=== PATIENT | male | born 1980 | race Caucasian/White ===

== ENCOUNTER 2018-09-16 06:51 | Emergency (ER) | payer OTHER ==
[~2018-09-16] VITALS: Ht 170.2 cm; Wt 54.9 kg
[2018-09-16 07:07] LABS: ABSOLUTE NEUTROPHILS 4.5 thou/uL (1.4-8.2); BASOPHILS 0.4 % (0.0-2.0); HEMATOCRIT 42.7 % (42.0-52.0); HEMOGLOBIN 14.5 gm/dL (14.0-18.0); LYMPHOCYTES 25.7 % (24.0-44.0); MCH 30.3 pg (26.0-34.0); MCHC 33.9 g/dL (28.0-37.0); MCV 89.4 fL (80.0-100.0); MONOCYTES 10.9 % (1.0-8.0); PLATELET COUNT 140 thou/uL (150-400); RBC 4.78 mil/uL (4.50-6.00); RDW 13.4 % (10.5-14.5); WBC 7.4 thou/uL (4.0-11.0)
[2018-09-16 07:14] LABS: ANION GAP 8 mmol/L (7-16); BUN 14 mg/dL (7-18); CALCIUM 9.5 mg/dL (8.5-10.1); CHLORIDE 105 mmol/L (98-107); CO2 27 mmol/L (21-32); CREATININE 0.9 mg/dL (0.7-1.3); GLUCOSE 108 mg/dL (74-106); POTASSIUM 3.8 mmol/L (3.5-5.1); SODIUM 140 mmol/L (136-145)
[2018-09-16 07:23] LABS: TROPONIN-I <0.06 ng/mL (<0.06)
[2018-09-16 07:43] VITALS: BP 110/85
--- NOTE | 2018-09-16 08:16 | EKG ---
[place] [address] [facility] [employer] [place] [address] ELECTROCARDIOGRAM REPORT Name: SCOTT MCKEON Room #: DEP ALETHA Varghese#: [id number] ������������������ Admission: 09/16/18 ������������������ Attend Phys: Discharge: 09/16/18 ������������������ Date of : 82 Report #: [id number] ����������������������������������������������������������������� [id number] THIS REPORT FOR: //name// [facility] ED Test Date: 2018-09-16 Test Time: 07:01:43 Pat Name: SCOTT MCKEON Department: Room: Gender: Manganese Wheeler: : 1980 Requested By: Willy Atkins Order Number: [id number] MD: Butch Perkins Measurements Intervals [place] Rate: 69 P: 2 [place]: 139 QRS: 90 QRSD: 100 T: 82 QT: 387 QTc: 415 Interpretive Statements Sinus rhythm No significant abnormality No previous ECG available for comparison Electronically Signed On 09-16-2018 8:16:32 [employer] by uBtch Perkins [email or web address] ��������������������������������������������� <ELECTRONICALLY SIGNED> ���������������������������������������� By: Butch Perkins MD, [facility] ��������������������������������������������� 09/16/18 0816 0701 0701 Butch Perkins MD, FACC /EPI
== END 2018-09-16 07:57 ==
LOC: ER 06:51
PROVIDERS: Emergency Medicine
DX: R07.89 Other chest pain (principal); R56.9 Unspecified convulsions; F17.210 Nicotine dependence, cigarettes, uncomplicated

== ENCOUNTER 2021-01-15 01:11 | Emergency (ER) | payer OTHER ==
[~2021-01-15] VITALS: Ht 170.2 cm; Wt 68.0 kg
[2021-01-15] MEDS ORDERED: CEPHALEXIN500 MG PO (02:47)
[2021-01-15 02:54] VITALS: BP 129/89
== END 2021-01-15 02:54 | disposition home or self-care (01) ==
LOC: ER 01:11
DX: S61.412A Laceration without foreign body of left hand, initial encounter (principal); F17.210 Nicotine dependence, cigarettes, uncomplicated; Z98.890 Other specified postprocedural states; W45.8XXA Other foreign body or object entering through skin, initial encounter; Y93.89 Activity, other specified; Y92.89 Other specified places as the place of occurrence of the external cause; Y99.8 Other external cause status